=== PATIENT | female | born 1990 | race Two or more races ===

== ENCOUNTER 2022-07-14 07:07 | Emergency (ER) | payer MEDICAID ==
[~2022-07-14] VITALS: Ht 157.5 cm; Wt 72.5 kg
[2022-07-14 07:29] VITALS: BP 115/71
[2022-07-14] MEDS ORDERED: PENICILLIN G BENZ 1200000 UNITS/2 ML SYRG IM ONE (07:45)
== END 2022-07-14 08:02 | disposition home or self-care (01) ==
LOC: ER 07:07
DX: O98.113 Syphilis complicating pregnancy, third trimester (principal); Z3A.30 30 weeks gestation of pregnancy
CPT/HCPCS: 96372; 99283; J0561

== ENCOUNTER 2022-07-21 06:35 | Emergency (ER) | payer MEDICAID ==
[~2022-07-21] VITALS: Ht 157.5 cm; Wt 70.5 kg
[2022-07-21 06:58] VITALS: BP 119/66
[2022-07-21] MEDS ORDERED: PENICILLIN G BENZ 1200000 UNITS/2 ML SYRG IM ONE (07:15)
== END 2022-07-21 08:54 | disposition home or self-care (01) ==
LOC: ER 06:35
DX: O98.113 Syphilis complicating pregnancy, third trimester (principal); Z3A.32 32 weeks gestation of pregnancy
CPT/HCPCS: 96372; 99283; J0561

== ENCOUNTER 2022-07-26 10:46 | Observation (INO) | payer MEDICAID ==
[~2022-07-26] VITALS: Ht 157.5 cm; Wt 70.3 kg
[2022-07-26] MEDS ORDERED: LACTATED RINGER'S 1,000 ML IV ONE (11:45)
[2022-07-26 12:27] LABS: Basophils # (auto) 0 10 ^3/uL (0-0.2); Basophils % (auto) 0.3 % (0.0-2.0); Eosinophils # (auto) 0 10 ^3/uL (0-0.8); Eosinophils % (auto) 0.4 % (0.0-7.0); Hemoglobin 9.6 g/dL (12.2-16.2); Lymphocytes # (auto) 1.5 10 ^3/uL (0.4-5.4); Lymphocytes % (auto) 18.5 % (10.0-50.0); Mean Corpuscular Hemoglobin 29.2 pg (28.0-32.0); Mean Corpuscular Hgb Conc. 33.3 g/dL (32.0-36.0); Mean Corpuscular Volume 87.6 fL (80.0-100.0); Monocytes # (auto) 0.7 10 ^3/uL (0-1.3); Monocytes % (auto) 8.3 % (0.0-12.0); Neutrophils # (auto) 5.8 10 ^3/uL (1.6-8.6); Neutrophils % (auto) 72.5 % (37.0-80.0); Nucleated Red Blood Cells % 0.1 %; Red Cell Distribution Width 13.7 % (11.8-14.3); White Blood Cell 7.9 10^3/uL (4.4-10.8)
[2022-07-26 12:47] LABS: Potassium 3.7 mmol/L (3.5-5.1)
[2022-07-26 12:53] LABS: Albumin 2.3 g/dL (3.4-5.0); BUN/Creatinine Ratio 28.6 (10.0-20.0); Bilirubin, Total 0.3 mg/dL (0.2-1.0); Calcium 8.2 mg/dL (8.5-10.1); Total Protein 5.9 g/dL (6.4-8.2); Uric Acid 4.9 mg/dL (2.6-6.0)
[2022-07-26 12:59] LABS: INR 0.93 (0.9-1.15)
[2022-07-26 13:10] LABS: Urine Bacteria NONE SEEN /hpf (None Seen); Urine Blood Negative /uL (Negative); Urine Specific Gravity 1.014 (1.001-1.035); Urine WBC 1 /hpf (0 - 5)
[2022-07-26 13:18] LABS: Amphetamine Screen, Urine NEGATIVE (NEGATIVE); Barbiturate Scree,Urine NEGATIVE (NEGATIVE); Benzodiazephine Screen, Urine POSITIVE (NEGATIVE); Cannabinoid Screen, Urine NEGATIVE (NEGATIVE); Cocaine Screen, Urine NEGATIVE (NEGATIVE); Opiate Scree,Urine NEGATIVE (NEGATIVE); Phencyclidine Screen, Urine NEGATIVE (NEGATIVE)
[2022-07-26 13:19] LABS: Protein, Urine 12.1 mg/dL (0.0-11.9)
== END 2022-07-26 13:48 | disposition home or self-care (01) ==
LOC: LDRP 10:46 → UNDOADMOB 10:46 → LDRP 10:56
PROVIDERS: ADMIT Obstetrics & Gynecology; ATTEND Obstetrics & Gynecology
DX: O26.893 Other specified pregnancy related conditions, third trimester (principal); R51.9 Headache, unspecified; Z3A.34 34 weeks gestation of pregnancy; Z79.899 Other long term (current) drug therapy
CPT/HCPCS: 36415; 59025; 80053; 80307; 81001; 81002; 82570; 84156; 84550; 85025; 85610; 85730; 94760; 96360; 96361; G0378

== ENCOUNTER 2022-07-26 13:52 | Emergency (ER) | payer MEDICAID ==
[~2022-07-26] VITALS: Ht 157.5 cm; Wt 71.3 kg
[2022-07-26 13:57] VITALS: BP 123/65
== END 2022-07-27 17:06 | disposition left against medical advice (07) ==
LOC: ER 13:52
DX: O26.893 Other specified pregnancy related conditions, third trimester (principal); R51.9 Headache, unspecified; H53.149 Visual discomfort, unspecified; Z53.21 Procedure and treatment not carried out due to patient leaving prior to being seen by health care provider; Z3A.33 33 weeks gestation of pregnancy

== ENCOUNTER 2022-09-02 04:17 | Inpatient (IN) | payer MEDICAID ==
[2022-09-01 10:48] LABS: Basophils # (auto) 0 10 ^3/uL (0-0.2); Basophils % (auto) 0.2 % (0.0-2.0); Eosinophils # (auto) 0 10 ^3/uL (0-0.8); Eosinophils % (auto) 0.3 % (0.0-7.0); Hematocrit 35.7 % (36.0-46.0); Hemoglobin 11.8 g/dL (12.2-16.2); Lymphocytes # (auto) 1.7 10 ^3/uL (0.4-5.4); Lymphocytes % (auto) 16.5 % (10.0-50.0); Mean Corpuscular Hemoglobin 29.2 pg (28.0-32.0); Mean Corpuscular Hgb Conc. 33.2 g/dL (32.0-36.0); Mean Corpuscular Volume 87.8 fL (80.0-100.0); Monocytes # (auto) 0.8 10 ^3/uL (0-1.3); Monocytes % (auto) 7.7 % (0.0-12.0); Neutrophils # (auto) 7.9 10 ^3/uL (1.6-8.6); Neutrophils % (auto) 75.3 % (37.0-80.0); Nucleated Red Blood Cells % 0.1 %; Red Blood Cells 4.06 10^6/uL (4.0-5.20); White Blood Cell 10.5 10^3/uL (4.4-10.8)
[2022-09-01 10:55] LABS: Urine Bacteria FEW /hpf (None Seen); Urine Blood Negative /uL (Negative); Urine Specific Gravity 1.009 (1.001-1.035); Urine WBC 15 /hpf (0 - 5)
[2022-09-01 11:02] LABS: INR 0.89 (0.9-1.15); Partial Thromboplastin Time 30.5 sec (24.6-33.4)
[2022-09-01 11:04] LABS: Albumin 2.8 g/dL (3.4-5.0); Calcium 8.5 mg/dL (8.5-10.1); Potassium 4.6 mmol/L (3.5-5.1)
[2022-09-01 11:08] LABS: BUN/Creatinine Ratio 20.6 (10.0-20.0); Bilirubin, Total 0.5 mg/dL (0.2-1.0); Total Protein 6.9 g/dL (6.4-8.2)
[2022-09-01 11:12] LABS: Alcohol, Urine < 3.0 mg/dL (0-10); Amphetamine Screen, Urine NEGATIVE (NEGATIVE); Barbiturate Scree,Urine NEGATIVE (NEGATIVE); Benzodiazephine Screen, Urine NEGATIVE (NEGATIVE); Cannabinoid Screen, Urine NEGATIVE (NEGATIVE); Cocaine Screen, Urine NEGATIVE (NEGATIVE); Opiate Scree,Urine NEGATIVE (NEGATIVE); Phencyclidine Screen, Urine NEGATIVE (NEGATIVE)
[~2022-09-02] VITALS: Ht 157.5 cm; Wt 74.8 kg
[2022-09-02] VITALS (14 sets, daily range): BP systolic 90–121; BP diastolic 51–87
[2022-09-02] MEDS ORDERED: METOCLOPRAMIDE HCL 5MG/ml INJ 2ml VIAL IV ONE (04:45)
[2022-09-02] MEDS ORDERED: LACTATED RINGER'S 1,000 ML IV ONE (04:45)
[2022-09-02] MEDS ORDERED: SODIUM CITR/CITRIC ACID ORAL SOLN 30 ML PO ONE (04:45)
[2022-09-02] MEDS ORDERED: ceFAZolin 1GM/50ML 50 ML IV ONE (04:45)
[2022-09-02] MEDS ORDERED: PREN-96 PO (05:46)
[2022-09-02] MEDS: LACTATED RINGER'S 1,000 ML IV SCH ×2 (07:03→10:19)
[2022-09-02] MEDS ORDERED: LACT. RINGERS/OXYTOCIN 20UNITS 1,000 ML IV ONE (07:15)
[2022-09-02] MEDS ORDERED: ONDANSETRON HCL 4 MG/2 ML VIAL IV PRN ×3 (07:15→09:00)
[2022-09-02] MEDS ORDERED: MORPHINE SULF PF 5 MG/10 ML VIAL ONE (07:16)
[2022-09-02] MEDS ORDERED: fentaNYL CITRATE 100 MCG/2 ML VL ONE (07:16)
[2022-09-02] MEDS ORDERED: GLYCOPYRROLATE 0.2 MG/ML 1ML VIAL ONE (07:17)
[2022-09-02] MEDS ORDERED: oxyTOCIN 10 UNIT/ML 10ML VIAL ONE (07:17)
[2022-09-02] MEDS ORDERED: BUPIVACAINE 0.5% P/F INJ 10 ML VIAL ONE (07:17)
[2022-09-02] MEDS ORDERED: ONDANSETRON HCL 4 MG/2 ML VIAL ONE (07:17)
[2022-09-02] MEDS ORDERED: ePHEDrine SULFATE 50 MG/ML AMP ONE ×2 (07:17→08:19)
[2022-09-02] MEDS ORDERED: MIDAZOLAM HCL 2MG/2ML 2ml VIAL (1mg/ml) ONE (07:58)
[2022-09-02] MEDS ORDERED: NALOXONE HCL 0.4 MG/ML VIAL IV PRN (09:00)
[2022-09-02] MEDS ORDERED: DexAMETHasone SOD PHOS 10MG/1ML VIAL INJ IV PRN (09:00)
[2022-09-02] MEDS ORDERED: diphenhdrAMINE HCL 50 MG/1 ML VL IV PRN (09:00)
[2022-09-02] MEDS: ACETAMINOPHEN IV 1000 MG/100ML (10MG/ML) IV PRN ×2 (11:08→20:00)
[2022-09-02] MEDS ORDERED: GUM (CHEWING) 1 GUM CHEW CHEW ONE (14:30)
[2022-09-02] MEDS: ceFAZolin 1GM/50ML 50 ML IV SCH ×2 (15:21→22:45)
[2022-09-02] MEDS: KETOROLAC TROMETH 30 MG/ML 1ML VIAL IV PRN ×2 (15:23→21:17)
[2022-09-02] MEDS ORDERED: HYDROmorphone HCL 2 MG/ML VL/or syr IV PRN (19:30)
[2022-09-02 23:15] LABS: Basophils # (auto) 0 10 ^3/uL (0-0.2); Basophils % (auto) 0.3 % (0.0-2.0); Eosinophils # (auto) 0.1 10 ^3/uL (0-0.8); Eosinophils % (auto) 0.6 % (0.0-7.0); Hematocrit 30.5 % (36.0-46.0); Hemoglobin 10.2 g/dL (12.2-16.2); Lymphocytes # (auto) 1.8 10 ^3/uL (0.4-5.4); Lymphocytes % (auto) 19.6 % (10.0-50.0); Mean Corpuscular Hemoglobin 29.7 pg (28.0-32.0); Mean Corpuscular Hgb Conc. 33.5 g/dL (32.0-36.0); Mean Corpuscular Volume 88.7 fL (80.0-100.0); Monocytes # (auto) 0.6 10 ^3/uL (0-1.3); Monocytes % (auto) 5.9 % (0.0-12.0); Neutrophils # (auto) 6.8 10 ^3/uL (1.6-8.6); Neutrophils % (auto) 73.6 % (37.0-80.0); Nucleated Red Blood Cells % 0.1 %; Red Blood Cells 3.45 10^6/uL (4.0-5.20); White Blood Cell 9.3 10^3/uL (4.4-10.8)
[2022-09-03] VITALS (10 sets, daily range): BP systolic 100–116; BP diastolic 52–81
[2022-09-03] MEDS: KETOROLAC TROMETH 30 MG/ML 1ML VIAL IV PRN (03:03)
[2022-09-03] MEDS: ACETAMINOPHEN IV 1000 MG/100ML (10MG/ML) IV PRN (04:07)
[2022-09-03] MEDS: LACTATED RINGER'S 1,000 ML IV SCH ×4 (04:45→20:45)
[2022-09-03] MEDS ORDERED: HYDROcodone-ACET 5/325MG TAB PO PRN (06:45)
[2022-09-03] MEDS: ceFAZolin 1GM/50ML 50 ML IV SCH (07:30)
[2022-09-03] MEDS: HYDROcodone-ACET 5/325MG TAB PO PRN ×3 (07:46→22:02)
[2022-09-03 08:43] LABS: Basophils # (auto) 0 10 ^3/uL (0-0.2); Basophils % (auto) 0.2 % (0.0-2.0); Eosinophils # (auto) 0.1 10 ^3/uL (0-0.8); Eosinophils % (auto) 0.6 % (0.0-7.0); Hematocrit 33.1 % (36.0-46.0); Hemoglobin 10.8 g/dL (12.2-16.2); Lymphocytes # (auto) 1.6 10 ^3/uL (0.4-5.4); Lymphocytes % (auto) 18.6 % (10.0-50.0); Mean Corpuscular Hemoglobin 28.8 pg (28.0-32.0); Mean Corpuscular Hgb Conc. 32.5 g/dL (32.0-36.0); Mean Corpuscular Volume 88.7 fL (80.0-100.0); Monocytes # (auto) 0.5 10 ^3/uL (0-1.3); Monocytes % (auto) 6.3 % (0.0-12.0); Neutrophils # (auto) 6.4 10 ^3/uL (1.6-8.6); Neutrophils % (auto) 74.3 % (37.0-80.0); Nucleated Red Blood Cells % 0.1 %; Red Blood Cells 3.73 10^6/uL (4.0-5.20); Red Cell Distribution Width 17.3 % (11.8-14.3); White Blood Cell 8.6 10^3/uL (4.4-10.8)
[2022-09-03] MEDS: DOCUSATE CALCIUM 240 MG CAP PO SCH (09:59)
[2022-09-03] MEDS: IBUPROFEN 800 MG TAB PO PRN (09:59)
[2022-09-03] MEDS: DOCUSATE SOD 100 MG CAP PO SCH ×2 (10:00→22:03)
[2022-09-03] MEDS: SIMETHICONE 80 MG CHEWABLE TABLET PO SCH ×3 (12:27→22:10)
[2022-09-03] MEDS ORDERED: HYDR-4902 PO (13:17)
[2022-09-03] MEDS ORDERED: IBUP800T27 PO (13:17)
[2022-09-03] MEDS ORDERED: DOCU-94 PO (13:17)
[2022-09-04] MEDS: IBUPROFEN 800 MG TAB PO PRN ×2 (01:01→12:14)
[2022-09-04] MEDS: HYDROcodone-ACET 5/325MG TAB PO PRN ×4 (01:58→20:13)
[2022-09-04 03:10] VITALS: BP 111/70
[2022-09-04] MEDS: SIMETHICONE 80 MG CHEWABLE TABLET PO SCH ×4 (06:05→22:30)
[2022-09-04 08:10] VITALS: BP 112/67
[2022-09-04] MEDS ORDERED: TETANUS-DIPTH-ACEL PERTUSSIS 0.5ML SYR Tdap IM ONE (10:00)
[2022-09-04] MEDS: DOCUSATE SOD 100 MG CAP PO SCH ×2 (11:58→22:30)
[2022-09-04] MEDS: DOCUSATE CALCIUM 240 MG CAP PO SCH (11:58)
[2022-09-04 12:12] VITALS: BP 119/66
[2022-09-04 16:05] VITALS: BP 113/61
[2022-09-04 18:50] VITALS: BP 118/65
[2022-09-04 22:50] VITALS: BP 110/66
[2022-09-05] MEDS: IBUPROFEN 800 MG TAB PO PRN (02:44)
[2022-09-05 03:01] VITALS: BP 108/70
[2022-09-05 07:15] VITALS: BP 128/69
[2022-09-05] MEDS: SIMETHICONE 80 MG CHEWABLE TABLET PO SCH (07:30)
[2022-09-05] MEDS: HYDROcodone-ACET 5/325MG TAB PO PRN (07:41)
== END 2022-09-05 15:15 | disposition home or self-care (01) | DRG 540 ==
LOC: LDRP 04:17
PROVIDERS: ADMIT Obstetrics & Gynecology; ATTEND Obstetrics & Gynecology
PROC: 10D00Z1 Extraction of Products of Conception, Low, Open Approach (ICD-10-PCS; principal; 2022-09-02 07:27)
DX: O34.211 Maternal care for low transverse scar from previous cesarean delivery (principal); O98.12 Syphilis complicating childbirth; Z37.0 Single live birth; Z3A.39 39 weeks gestation of pregnancy
CPT/HCPCS: 36415; 59025; 80053; 80307; 81001; 85025; 85610; 85730; 86592; 86850; 86900; 86901; 90471; 90715; 94760; 94762; 96360; 96361; 96365; 96366; 96372; 96374; 96375; G0378; J0131; J0690; J1885; J2250; J2405; J2590; J3490